=== PATIENT | male | born 1950 | race Caucasian/White ===

== ENCOUNTER 2020-09-21 13:25 | Emergency (ER) | payer OTHER ==
[~2020-09-21] VITALS: Ht 170.2 cm; Wt 80.3 kg
[2020-09-21 13:31] VITALS: BP 148/77
--- NOTE | 2020-09-21 13:36 | NUR ---
Patient ambulated to bed 11. RN evaluating patient at bedside.
--- NOTE | 2020-09-21 13:56 | NUR ---
Dr. Mendosa is evaluating the patient at bedside.
[2020-09-21 14:26] LABS: BASOPHILS % (AUTO) 0.6 % (0.0-2.0); EOSINOPHILS # (AUTO) 0.1 K/uL (0-0.4); EOSINOPHILS % (AUTO) 1.8 % (0.0-4.0); HEMATOCRIT 51.1 % (36-52); HEMOGLOBIN 16.8 g/dL (12.0-18.0); LYMPHOCYTES # (AUTO) 1.5 K/uL (2.0-11.5); MEAN CORPUSCULAR HEMOGLOBIN 27 pg (27-31); MEAN CORPUSCULAR HGB CONC 33 g/dL (33-37); MEAN CORPUSCULAR VOLUME 83.3 fL (80-94); MONOCYTES # (AUTO) 1.1 K/uL (0.8-1.0); MONOCYTES % (AUTO) 14.2 % (1.7-9.3); NEUTROPHILS % (AUTO) 64.4 % (42.2-75.2); PLATELET COUNT (AUTO) 257 K/uL (140-450); RED BLOOD CELL COUNT(AUTO) 6.13 MIL/uL (4.20-6.10); RED CELL DISTRIBUTION WIDTH 16.2 % (11.6-13.7); WHITE BLOOD COUNT (AUTO) 7.7 K/uL (4.8-10.8)
[2020-09-21 16:31] LABS: ANION GAP 13.3 (8-16); CARBON DIOXIDE 27.7 mmol/L (21-32)
[2020-09-21 16:45] VITALS: BP 148/77
--- NOTE | 2020-09-21 16:45 | NUR ---
Patient discharged with v/s stable. Written and verbal after care instructions given and explained. Patient verbalized understanding. Ambulatory with steady gait. All questions addressed prior to discharge. Advised to follow up with PMD.
== END 2020-09-21 16:46 | disposition home or self-care (01) ==
LOC: MED 13:25
DX: R21 Rash and other nonspecific skin eruption (principal); R07.9 Chest pain, unspecified; I51.9 Heart disease, unspecified; Z00.01 Encounter for general adult medical examination with abnormal findings; Z59.0 Homelessness
CPT/HCPCS: 36415; 80048; 84484; 85025; 93005; 99284